=== PATIENT | male | born 1965 | race Caucasian/White ===

== ENCOUNTER 2021-08-12 23:46 | Emergency (ER) | payer BC ==
[~2021-08-12] VITALS: Ht 167.6 cm; Wt 76.2 kg
[~2021-08-12 23:46] MED LIST: ASPI81TA83 OR; DEPA500T2 OR; No Historical Meds
[2021-08-13] MEDS ORDERED: IBUPROFEN 600MG TAB PO ONE (07:30)
[2021-08-13] MEDS ORDERED: PERCOCET 5MG/325MG TAB PO ONE (08:25)
[2021-08-13 09:07] LABS: BASO % 0.2 % (0.0-1.0); EOS # 0.1 10^3/uL (0.0-0.5); EOS % 1.7 % (0.0-3.0); HEMOGLOBIN 14.5 g/dl (13.5-17.5); LYMPH # 1.2 10^3/uL (1.5-5.0); LYMPH % 28.6 % (24.0-44.0); MEAN CORPUSCULAR HEMOGLOBIN 31.3 pg (27.0-33.0); MEAN CORPUSCULAR HGB CONC 34.5 g/dl (32.0-36.5); MEAN CORPUSCULAR VOLUME 90.7 fl (80.0-96.0); MONO # 0.7 10^3/uL (0.0-0.8); MONO % 15.8 % (2.0-8.0); NEUTROPHILS # 2.3 10^3/uL (1.5-8.5); NEUTROPHILS % 53.2 % (36.0-66.0); PLATELET COUNT, AUTOMATED 102 10^3/uL (150-450); RED BLOOD COUNT 4.63 10^6/uL (4.30-6.10); WHITE BLOOD COUNT 4.2 10^3/uL (4.0-10.0)
[2021-08-13 09:21] LABS: ALBUMIN 3.2 GM/DL (3.2-5.2); ALT/SGPT 51 U/L (12-78); BILIRUBIN,TOTAL 0.4 MG/DL (0.2-1.0); BLOOD UREA NITROGEN 18 MG/DL (7-18); C REACTIVE PROTEIN QUANTITATIV 0.86 MG/DL (0.00-0.30); CALCIUM LEVEL 8.7 MG/DL (8.5-10.1); CARBON DIOXIDE LEVEL 29 MEQ/L (21-32); CHLORIDE LEVEL 105 MEQ/L (98-107); CK-MB VALUE MASS 1.1 NG/ML (<3.6); CPK CREATINE PHOSPHOKINASE 90 U/L (39-308); CREATININE FOR GFR 0.69 MG/DL (0.70-1.30); FERRITIN 586 NG/ML (26-388); GLOMERULAR FILTRATION RATE > 60.0 (>56); GLUCOSE, FASTING 107 MG/DL (70-100); LDH LACTATE DEHYDROGENASE 187 U/L (87-241); MB/CK RELATIVE INDEX 1.22 (< OR =4); POTASSIUM SERUM 4.1 MEQ/L (3.5-5.1); SODIUM LEVEL 141 MEQ/L (136-145); TOTAL PROTEIN 6.7 GM/DL (6.4-8.2); TROPONIN I < 0.02 NG/ML (< 0.10)
[2021-08-13 09:24] LABS: INR 1.09; PARTIAL THROMBOPLASTIN TIME 28.8 SECONDS (25.9-37.0); PROTHROMBIN TIME 14.5 SECONDS (12.7-14.5)
[2021-08-13 09:27] LABS: D-DIMER QUANT 425.54 ng/ml (<500)
[2021-08-13] MEDS ORDERED: IBUP-1022 PO (09:27)
[2021-08-13] MEDS ORDERED: PERC5TAB12 PO (09:27)
[2021-08-13 09:30] VITALS: BP 151/97
== END 2021-08-13 09:45 | disposition home or self-care (01) ==
LOC: M ED 23:46
DX: U07.1 COVID-19 (principal); M79.18 Myalgia, other site; F17.200 Nicotine dependence, unspecified, uncomplicated; F10.10 Alcohol abuse, uncomplicated

== ENCOUNTER → 2022-03-12 | Outpatient (CLI) | payer BC ==
[~2022-03-12] MED LIST changes: +IBUP-1022 PO; +PERC5TAB12 PO
== END ==
LOC: M RAD 18:19
PROVIDERS: ATTEND Physician Assistant
DX: J20.9 Acute bronchitis, unspecified (principal)